=== PATIENT | male | born 1945 | race Caucasian/White ===

== ENCOUNTER → 2019-04-23 11:41 | Outpatient (BNVA) | payer MEDICARE, OTHER, SELFPAY | PROVIDERS: Family Provider Registered Nurse; PCP Registered Nurse; Visit Provider Registered Nurse | DX: J32.9 Chronic sinusitis, unspecified (principal) | CPT/HCPCS: 80053; 85007; 85027 ==

== ENCOUNTER → 2019-05-06 09:55 | Outpatient (BNVA) | payer MEDICARE, OTHER, SELFPAY | PROVIDERS: Family Provider Registered Nurse; PCP Registered Nurse; Referring Provider Registered Nurse; Visit Provider Otolaryngology | DX: J32.9 Chronic sinusitis, unspecified (principal); J34.2 Deviated nasal septum; J34.3 Hypertrophy of nasal turbinates; J30.9 Allergic rhinitis, unspecified; K21.9 Gastro-esophageal reflux disease without esophagitis | CPT/HCPCS: 99203; 99214 ==

== ENCOUNTER 2019-07-17 10:31 | Outpatient (CLI) | payer MEDICARE, OTHER, SELFPAY ==
--- NOTE | 2019-07-17 11:00 | CT_ITS ---
WS: [id number] CT PARANASAL SINUSES HISTORY: chronic sinusitis TECHNIQUE: Contiguous 2.5 mm axial images obtained through the sinuses. Images are reconstructed in s agittal and coronal planes. All CT scans at [facility] use at least one of these dose opt imization techniques: automated exposure control; mA and/or kV adjustment per patient size (includes targeted exams where dose is matched to clinical indication); or iterative reconstruction. DLP: 377.0 mGycm COMPARISON: None available. Frontal sinuses: Normal. Sphenoid sinus: Normal. Ethmoid sinuses: Normal. Maxillary sinus: Incomplete soft tissue septum inferior LEFT maxillary sinus. No air-fluid levels. Ostiomeatal unit: Osteoid units are patent. There is mild narrowing of the RIGHT ostiomeatal unit due to fat from the inferior medial RIGHT orbit extending through 3.8 mm bony dehiscence in the floor of the orbit. Probably from old trauma. There is no entrapment of the extraocular muscles. Very slight leftward deviation of the nasal septum. Lalita bessie and fovea ethmoidalis are negative. CT/CT sinus wo con* [id number] IMPRESSION: 1. No acute or significant sinus disease. 2. Inferior displacement of the RIGHT inferomedial orbital fat through bony de fect causing very slight but not significant narrowing of the RIGHT ostiomeatal unit.
== END 2019-07-17 10:32 | disposition home or self-care (01) ==
LOC: RADWPI 10:36
PROVIDERS: Family Provider Registered Nurse; PCP Registered Nurse; Visit Provider Otolaryngology
DX: J32.9 Chronic sinusitis, unspecified (principal)
CPT/HCPCS: 70486

== ENCOUNTER → 2020-02-18 09:07 | Outpatient (BNVA) | payer MEDICARE, OTHER, SELFPAY | PROVIDERS: Family Provider Registered Nurse; PCP Registered Nurse; Visit Provider Registered Nurse | DX: M54.16 Radiculopathy, lumbar region (principal); G89.29 Other chronic pain; N40.1 Benign prostatic hyperplasia with lower urinary tract symptoms; R53.83 Other fatigue; R35.0 Frequency of micturition; E55.9 Vitamin D deficiency, unspecified | CPT/HCPCS: 80053; 81000; 82306; 84153; 85025 ==

== ENCOUNTER → 2020-03-10 09:11 | Outpatient (BNVA) | payer MEDICARE, OTHER, SELFPAY | PROVIDERS: Family Provider Registered Nurse; PCP Registered Nurse; Referring Provider Registered Nurse; Visit Provider Anesthesiology Pain Medicine | DX: G89.29 Other chronic pain (principal); M54.42 Lumbago with sciatica, left side; M51.36 Other intervertebral disc degeneration, lumbar region; M47.816 Spondylosis without myelopathy or radiculopathy, lumbar region; M54.16 Radiculopathy, lumbar region; M43.06 Spondylolysis, lumbar region; M54.9 Dorsalgia, unspecified | CPT/HCPCS: 99205 ==

== ENCOUNTER 2020-03-18 12:43 | Outpatient (CLI) | payer MEDICARE, SELFPAY ==
--- NOTE | 2020-03-18 13:00 | MR_ITS ---
WS: [id number] MRI LUMBAR SPINE NONCONTRAST HISTORY: M54.16 - Radiculopathy, lumbar region COMPARISON: None available. TECHNIQUE: Sagittal and axial multisequence imaging is submitted. L4 anterolisthesis by 4.9 mm. L2 retrolisthesis by 4 mm. Otherwise alignment is normal. Severe disc space narrowing at L5-S1. Otherwise mild/moderate disc degeneration and narrowing. Hypert rophic osteophytes at all levels. No marrow edema or fracture. Conus terminates normally at L1. T10-11: Shallow LEFT paracentral disc protrusion. L1-L2: Moderate annular disc bulging. Additional osteophytic ridging. Facet joint effusions and ligam entum flavum hypertrophy and facet arthritis. There is a mixed signal intensity mass extending over l ength of 1.4 cm closely associated with the LEFT facet joint encroaching into the central canal and d isplacing the thecal sac and nerve roots to the RIGHT. Transverse and AP diameter of the mass is 0.9 x 0.9 cm. There is significant mass effect upon the LEFT L2 nerve root with extension into the LEFT s ubarticular recess and lateral recess. L2-L3: Diffuse annular disc bulging and osteophytic ridging. Mild bilateral foraminal narrowing and l ateral recess stenosis. L3-L4: Mild annular disc bulging and osteophytic ridging with facet and ligamentum flavum arthritis. Mild bilateral foraminal and subarticular recess narrowing. L4-L5: Diffuse annular disc bulging. Severe ligamentum flavum hypertrophy and facet joint arthritis, greatest on the LEFT. Findings resulting in at least moderate LEFT subarticular recess stenosis and m ild on the RIGHT. L5-S1: Diffuse annular disc bulging and osteophytic ridging. Disc osteophyte extends into the LEFT fo ramen and RIGHT foramen resulting in moderate bilateral foraminal stenosis. Component of the disc pro bably also approaching the LEFT S1 nerve root. Ectatic iliac arteries. Bilateral renal cysts. Small amount of edema in the paraspinal and interspinous ligaments at L2-3 and L3-4. MR/MR lumbar spine wo con* [id number] IMPRESSION: 1. Mass measuring 1.4 x 0.9 x 0.9 cm centered in the LEFT lateral recess and s ubarticular foramen at L1-2. Due to its position and appearance favor this is p robably a hemorrhagic or complex cyst associated with the facet joint. Causing significant mass effect upon the thecal sac and nerve roots and the L2 nerve ro ot on the LEFT. 2. Mild bilateral foraminal stenosis at L2-3 and L3-4 with component of the chavarria barticular lateral recess stenosis. 3. Moderate LEFT subarticular recess and lateral recess stenosis at L4-5 due t o combination of disc disease and facet joint arthritis. 4. Moderate bilateral foraminal stenosis at L5-S1 due to combination of osteop hytes and disc disease. Also there is slight disc and/or osteophyte encroachmen t upon the LEFT S1 nerve root.
== END 2020-03-18 12:44 | disposition home or self-care (01) ==
PROVIDERS: PCP Registered Nurse; Visit Provider Anesthesiology Pain Medicine
DX: M54.16 Radiculopathy, lumbar region (principal); M48.061 Spinal stenosis, lumbar region without neurogenic claudication; M48.07 Spinal stenosis, lumbosacral region; M25.78 Osteophyte, vertebrae
CPT/HCPCS: 72148

== ENCOUNTER → 2020-04-06 10:46 | Outpatient (BNVA) | payer MEDICARE, OTHER, SELFPAY | PROVIDERS: PCP Registered Nurse; Visit Provider Anesthesiology Pain Medicine | DX: G89.29 Other chronic pain (principal); M51.36 Other intervertebral disc degeneration, lumbar region; M54.42 Lumbago with sciatica, left side; M54.16 Radiculopathy, lumbar region; M47.816 Spondylosis without myelopathy or radiculopathy, lumbar region; M43.06 Spondylolysis, lumbar region; M54.9 Dorsalgia, unspecified | CPT/HCPCS: 99214 ==

== ENCOUNTER → 2020-05-15 11:16 | Outpatient (BNVA) | payer MEDICARE, OTHER, SELFPAY | PROVIDERS: PCP Registered Nurse; Visit Provider Registered Nurse | DX: I73.9 Peripheral vascular disease, unspecified (principal); R42 Dizziness and giddiness; E16.2 Hypoglycemia, unspecified; R07.9 Chest pain, unspecified | CPT/HCPCS: 36416; 80053; 82962; 83036; 85025 ==

== ENCOUNTER 2020-06-29 13:21 | Outpatient (CLI) | payer MEDICARE, OTHER, SELFPAY ==
--- NOTE | 2020-06-29 13:30 | USCV_ITS ---
Ricci Torres Age: 74 Gender: M : 1945 Exam Date: 06/29/2020 13:48 Ordering Phys: Aric Barajas M.D ([email or web address]) Technologist: Phillip Quiñonez Exam Location: [facility] [place] Indication: HYPERTENSION BP: / HR: Rhythm: Sinus Technical Quality: Adequate MEASUREMENTS (Male / Female) Normal Values FINDINGS Left Ventricle Normal left ventricular size. LV systolic function is normal with EF of 55-60%. No regional wall motion abnormalities. Grade 1 diastolic dysfunction Right Ventricle The right ventricle is normal in size and function. Right Atrium The right atrium is normal in size. Left Atrium The left atrium is normal in size. Mitral Valve Structurally normal mitral valve without significant stenosis or prolapse. There is trace mitral regurgitation. Aortic Valve Structurally normal aortic valve without significant sclerosis or stenosis. There is trace aortic regurgitation. Tricuspid Valve Structurally normal tricuspid valve without significant stenosis or regurgitation. Insufficient TR jet to calculate RVSP Pulmonic Valve Structurally normal pulmonic valve without significant stenosis. There is no pulmonic regurgitation. Pericardium Normal pericardium without effusion. Aorta Normal ascending aorta dimension. CONCLUSIONS LV systolic function is normal with EF of 55-60% Grade 1 diastolic dysfunction Trace mitral regurgitation. Mild aortic regurgitation No comparison studies are available Aric Barajas MD (Electronically Signed) Final Date: 12 July 2020 13:36 S
== END 2020-06-29 13:22 | disposition home or self-care (01) ==
LOC: RAD 13:28
PROVIDERS: PCP Registered Nurse; Visit Provider Internal Medicine
DX: I10 Essential (primary) hypertension (principal); I35.1 Nonrheumatic aortic (valve) insufficiency; I34.0 Nonrheumatic mitral (valve) insufficiency
CPT/HCPCS: 93306

== ENCOUNTER → 2021-05-10 10:21 | Outpatient (BNVA) | payer MEDICARE, OTHER, SELFPAY | PROVIDERS: PCP Registered Nurse; Visit Provider Registered Nurse | DX: Z20.822 Contact with and (suspected) exposure to COVID-19 (principal); J01.40 Acute pansinusitis, unspecified | CPT/HCPCS: 87635 ==

== ENCOUNTER → 2021-07-06 10:08 | Outpatient (BNVA) | payer MEDICARE, OTHER, SELFPAY | PROVIDERS: PCP Registered Nurse; Visit Provider Registered Nurse | DX: Z13.6 Encounter for screening for cardiovascular disorders (principal); E55.9 Vitamin D deficiency, unspecified; I10 Essential (primary) hypertension; R73.9 Hyperglycemia, unspecified; Z12.5 Encounter for screening for malignant neoplasm of prostate; Z00.00 Encounter for general adult medical examination without abnormal findings; Z71.85 Encounter for immunization safety counseling | CPT/HCPCS: 80053; 80061; 81000; 82306; 83036; 85025; G0103 ==

== ENCOUNTER → 2022-03-03 08:30 | Outpatient (BNVA) | payer MEDICARE, OTHER, SELFPAY | PROVIDERS: PCP Registered Nurse; Visit Provider Nurse Practitioner Family | DX: J30.1 Allergic rhinitis due to pollen (principal); J30.2 Other seasonal allergic rhinitis; N40.1 Benign prostatic hyperplasia with lower urinary tract symptoms; R60.9 Edema, unspecified; R35.0 Frequency of micturition; Z12.83 Encounter for screening for malignant neoplasm of skin; C44.91 Basal cell carcinoma of skin, unspecified; Z12.5 Encounter for screening for malignant neoplasm of prostate | CPT/HCPCS: 80048; 84153 ==

== ENCOUNTER → 2022-07-25 09:48 | Outpatient (BNVA) | payer MEDICARE, OTHER, SELFPAY | PROVIDERS: PCP Registered Nurse; Visit Provider Registered Nurse | DX: Z00.00 Encounter for general adult medical examination without abnormal findings (principal); I10 Essential (primary) hypertension; E55.9 Vitamin D deficiency, unspecified | CPT/HCPCS: 80053; 80061; 82306; 85025 ==

== ENCOUNTER 2022-07-30 19:25 | Emergency (ER) | payer MEDICARE, OTHER, SELFPAY ==
[2022-07-30] VITALS (8 sets, daily range): BP systolic 100–142; BP diastolic 69–87; PULSE 58–84; RESP 14–18; TEMP 36.8; O2SAT 94–97; BMI 25.1
--- NOTE | 2022-07-30 20:10 | USR_ITS ---
PROCEDURE INFORMATION: Exam: US Duplex Right Upper Extremity Veins, Limited Exam date and time: 07/30/2022 9:27 PM Age: 76 years old Clinical indication: Pain; Arm, upper and arm, lower; Right; Prior surgery; Surgery date: 6+ months; Surgery type: Rotator cuff; Additional info: RT arm pain TECHNIQUE: Imaging protocol: Real-time duplex ultrasound of the right Upper Extremity with 2-D villegas scale, color Doppler flow and spectral waveform analysis with image documentation. Limited exam focused on the right upper extremity veins. COMPARISON: No relevant prior studies available. FINDINGS: Right deep veins: Unremarkable. Axillary and brachial veins are patent throughout without thrombus. Normal Doppler waveforms. Normal compressibility and/or augmentation response. Visualized internal jugular and subclavian veins are patent. Right superficial veins: Unremarkable. Visualized cephalic and basilic veins are patent without thrombus. Soft tissues: Unremarkable. US/[place] [id number] IMPRESSION: No evidence of deep vein thrombosis.
[2022-07-30] MEDS: oxyCODONE-APAP 5-325 mg Tablet 2 TAB PO (21:10)
[2022-07-30] MEDS: ondansetron 4 MG Tablet PO ×2 (21:11→23:09)
[2022-07-30] MEDS: oxyCODONE-APAP 5-325 mg Tablet 1 TAB PO (23:09)
[2022-07-30] MEDS: doxycycline 100 mg Tablet PO (23:09)
--- NOTE | 2022-07-31 15:35 | W.ED.EXTPRO ---
HPI - Extremity Problem General: Chief complaint: Extremity Injury, Upper Stated complaint: Sent by DR for possible blood clot Time Seen by Provider: 07/30/22 20:41 Source: patient and family History of Present Illness: 76 year old gentleman who had eye surgery yesterday. He had an IV inserted in the right forearm. He developed elbow and arm pain earlier today with some swelling. He was seen in an outside facility, had an elevated D dimer, and there was concern for upper extremity DVT. He was sent here for an ultrasound to see if this is the case. He continues to experience significant right arm pain. No significant numbness or tingling. He does not note any other injury. He denies fever. He denies chest discomfort or shortness of breath. MD Complaint: extremity pain and extremity swelling Onset (ago): hour(s) Pain Consistency: constant Location: right and upper extremity Quality: aching Radiation: proximal Relieving factors: nothing Exacerbating factors: range of motion Associated symptoms: Deny chest pain, fever(s), myalgias, rash or short of breath Review of Systems Const: Denies: fever(s) or chills ENMT: Denies: throat pain Card: Denies: chest pain or palpitations Resp: Denies: dyspnea, productive cough or non-productive cough GI: Reports: nausea; Denies: abdominal pain or vomiting Musc: Reports: neck pain Skin/Breast: Denies: rash PFSH ED PFSH: Medical History Allergic rhinitis Cataract Chronic radicular lumbar pain Chronic sinusitis Deviated septum Enrolled in chronic care management GERD (gastroesophageal reflux disease) History of nonmelanoma skin cancer Nasal turbinate hypertrophy Retinal detachment TIMES 2 2014 Surgical History H/O arthroscopy of shoulder RIGHT-1986 LEFT 1989 H/O hernia repair 2017 H/O prostate biopsy 2005 History of tonsillectomy Hx of arthroscopic knee surgery TIMES 2-LEFT 1988 AND RIGHT 1987 Family History Grandmother Diabetes Mother Hemophilia Other Anesthesia complication Arthritis Cancer Hypertension Social History Smoking and tobacco status: former smoker Quit status (tobacco): has quit using tobacco Smoking risk assessment/counseling performed?: No Alcohol intake: current Desire information about alcohol rehabilitation?: No Counseling given: No Substance/Drug Use: never Desire information about substance/drug rehabilitation?: No Counseling given: No Household members: spouse Marital status: Current occupational status: retired Current gender identity: Male Physical Exam Const: COMMON NORMALS: no acute distress GENERAL APPEARANCE: cooperative; not ill appearing and not frail appearing HENMT: COMMON NORMALS: normocephalic, atraumatic and Normal external nose present HEAD & SCALP: normocephalic and atraumatic FACE & SINUS: normal facial exam and face symmetric NOSE: Normal external nose present Eye: COMMON NORMALS: Equal, round and reactive pupils present and EOMs intact bilaterally PUPIL: Yes Equal, round and reactive pupils present Neck/C-Spine: GENERAL: Yes trachea midline Chest: CHEST: Yes Symmetrical chest wall rise Resp: COMMON NORMALS: normal respiratory effort, No retractions, No use of accessory muscles and clear to auscultation bilaterally AUSCULTATION: clear to auscultation bilaterally Cardio: COMMON NORMALS: regular rate and regular rhythm RATE: regular rate RHYTHM: regular rhythm GI: COMMON NORMALS: Normal to inspection, nondistended, normoactive bowel sounds present Extremity: COMMON NORMALS: no pedal edema NARRATIVE EXTREMITY EXAM: Examination of the right upper extremity reveals tenderness over the arm, and forearm soft tissues. There is no elbow joint effusion. There does not appear to be a shoulder joint effusion. There is tenderness over the shoulder as well. no deformity. Minimal swelling. Minimal redness over the anterior forearm in the antecubital fossa. sensation intact. radial pulses normal. no signs of compartement syndrome Neuro: BABAK COMA SCALE: document GCS findings Babak coma scale eye opening: Spontaneous [place] coma scale verbal response: Orientated [place] coma scale motor response: Obey commands Babak coma scale total score: 15 SENSORY EXAM: Yes extremities (intact) Psych: COMMON NORMALS: speech normal SPEECH: Yes normal speech Skin: COMMON NORMALS: no rashes or lesions noted GENERAL SKIN EXAM: no rashes or lesions noted Course Vital Signs: Vital signs: Vital Signs Temperature 98.3 F 07/30/22 19:26 Pulse Rate 65 07/30/22 23:07 Respiratory Rate 14 07/30/22 23:07 Blood Pressure 125/82 07/30/22 23:07 Pulse Oximetry 97 07/30/22 23:07 Oxygen Delivery Me thod Room Air 07/30/22 21:04 MDM - Extremity (Nontraumatic) Medical Decision Making Work up completed at the outside facility reveals no significant Leukocytosis, BMP is not remarkable. D dimer was over 1. X-ray of the shoulder revealed significant shoulder arthritis evidently, X-ray of the elbow revealed ulnohumeral joint arthritis as well. Ultrasound for DVT of the right upper extremity is negative. This may be a superficial thrombophlebitis, which we will treat. 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 He'll be placed on pain medication, full dose aspirin, ice, and elevation. Close outpatient follow up with his PCP. You know to return for any new or worsening symptoms such as chest discomfort or shortness of breath. Lab Data Radiology Impressions Venous Duplex 07/30/22 20:10 IMPRESSION: No evidence of deep vein thrombosis. Discharge Plan Discharge Patient Disposition: Home Clinical Impression: Arm pain, right Superficial thrombophlebitis Qualifiers: Superficial thrombophlebitis-Involved body area: upper extremity Laterality: right Qualified Code(s): I80.8 - Phlebitis and thrombophlebitis of other sites Condition: Stable Prescriptions: New doxycycline hyclate 100 mg tablet 100 mg PO BID 7 Days Qty: 14 0RF aspirin 325 mg capsule 325 mg PO DAILY Qty: 30 0RF hydrocodone-acetaminophen 5-325 mg tablet 1 tab PO Q8H PRN (Reason: pain) Qty: 10 0RF ondansetron 4 mg film 4 mg PO DAILY PRN (Reason: nausea and vomiting) Qty: 10 0RF No Action nitroglycerin 0.4 mg tablet, sublingual 0.4 mg SUBLINGUAL Q5M PRN Rhopressa 0.02 % drops 1 drop ophthalmic (eye) ONCE latanoprost 0.005 % drops 1 drop ophthalmic (eye) ONCE timolol 0.5 % drops 1 drop ophthalmic (eye) BID mupirocin 2 % ointment 1 applic topical BID Qty: 15 0RF hydrochlorothiazide 25 mg tablet 25 mg PO QAM Qty: 30 4RF lisinopril 20 mg tablet See Rx Instructions .ROUTE .COMPLEX Qty: 90 0RF Dose Instruction: TAKE 1 TABLET BY MOUTH DAILY Rx Instructions: TAKE 1 TABLET BY MOUTH DAILY amlodipine 10 mg tablet See Rx Instructions .ROUTE .COMPLEX Qty: 90 2RF Dose Instruction: TAKE 1 TABLET BY MOUTH DAILY Rx Instructions: TAKE 1 TABLET BY MOUTH DAILY finasteride 5 mg tablet See Rx Instructions .ROUTE .COMPLEX Qty: 90 2RF Dose Instruction: TAKE 1 TABLET BY MOUTH AT BEDTIME Rx Instructions: TAKE 1 TABLET BY MOUTH AT BEDTIME omeprazole 20 mg capsule,delayed release(DR/EC) See Rx Instructions .ROUTE .COMPLEX Qty: 30 0RF Dose Instruction: TAKE 1 CAPSULE BY MOUTH EVERY DAY Rx Instructions: TAKE 1 CAPSULE BY MOUTH EVERY DAY celecoxib [Celebrex] 100 mg capsule 100 mg PO BID 30 Days Qty: 60 0RF Rx Instructions: cancel meloxicam Discharge Orders: Discharge ED (Routine); Ordered 07/30/22 Ordered By: Popeye Lopez Referrals: Patricia Christopher FNP [Primary Care Provider] - 1-3 days Patient Instructions: Superficial Thrombophlebitis (ED), Opioid Safety, Pain Management Activity Restrictions/Additional Instructions: Take aspirin daily as ordered. Antibiotics as ordered. Other medications are for pain and nausea. Ice frequently for pain. Elevate. Return for worsening pain despite treatment, worsening swelling despite treatment, chest discomfort, shortness of breath, fever, any other concerning symptoms. Coding Level of Care Code ED Electron Beam Photo Mask Technician for Daniel Davis
== END 2022-07-30 23:14 | disposition home or self-care (01) ==
PROVIDERS: Emergency Provider Emergency Medicine; PCP Registered Nurse
DX: I80.8 Phlebitis and thrombophlebitis of other sites (principal); Z87.891 Personal history of nicotine dependence
CPT/HCPCS: 93971; 99284; Q0162

== ENCOUNTER → 2023-06-06 13:48 | Outpatient (BNVA) | payer MEDICARE, SELFPAY | PROVIDERS: PCP Registered Nurse; Visit Provider Registered Nurse | DX: R10.9 Unspecified abdominal pain (principal) | CPT/HCPCS: 81000 ==

== ENCOUNTER → 2023-09-12 16:05 | Outpatient (BNVA) | payer MEDICARE, SELFPAY | PROVIDERS: PCP Registered Nurse; Visit Provider Registered Nurse | DX: I10 Essential (primary) hypertension (principal); E78.5 Hyperlipidemia, unspecified; E55.9 Vitamin D deficiency, unspecified; N40.1 Benign prostatic hyperplasia with lower urinary tract symptoms | CPT/HCPCS: 80053; 80061; 82306; 85025 ==

== ENCOUNTER 2023-11-25 16:06 | Emergency (ER) | payer MEDICARE, SELFPAY ==
[2023-11-25 16:20] VITALS: BP 148/96; PULSE 81; RESP 16; TEMP 36.4; O2SAT 98; BMI 25.8
--- NOTE | 2023-11-25 17:42 | ECG_ITS ---
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 Measurements Intervals [place] Rate: 77 P: 82 VA: 235 QRS: 5 QRSD: 84 T: 30 QT: 388 QTc: 440 Interpretive Statements SINUS RHYTHM WITH FIRST DEGREE AV BLOCK WITH OCCASIONAL SUPRAVENTRICULAR PREMATURE COMPLEXES NONSPECIFIC T-WAVE ABNORMALITY Compared to ECG 04/19/2016 09:28:44 First degree AV block now present Sinus bradycardia no longer present T-wave abnormality still present Electronically Signed On 11-25-2023 21:54:13 CDT by Aric Barajas M.D. [email or web address]
--- NOTE | 2023-11-25 17:42 | XRR_ITS ---
PROCEDURE INFORMATION: Exam: XR Chest Exam date and time: 11/25/2023 6:04 PM Age: 78 years old Clinical indication: Chest pressure; Patient HX: C/O chest pain; Additional info: Cp TECHNIQUE: Imaging protocol: Radiologic exam of the chest. Views: 1 view. COMPARISON: MR shoulder RT wo con* [id number] 11/22/2018 4:44 PM FINDINGS: Lungs: No focal consolidation. Pleural spaces: No evidence of pneumothorax. No evidence of pleural effusion. Heart/Mediastinum: Cardiomediastinal silhouette is within normal limits. Bones/joints: No evidence of acute osseous abnormality. XR/XR chest 1V portable [id number] IMPRESSION: 1. No acute cardiopulmonary abnormality.
[2023-11-25 18:07] VITALS: BP 151/103; PULSE 76; O2SAT 98
[2023-11-25 18:12] LABS: Basophils # 0.1 10^3/uL (0.0-0.1); Basophils % 0.7 %; Eosinophils # 0.2 10^3/uL (0.0-0.8); Eosinophils % 2.9 %; Hematocrit 44.8 % (37-53); Lymphocytes # 2.2 10^3/uL (0.8-4.8); Lymphocytes % 30.8 %; Mean Corpuscular HGB Conc 34.2 g/dL (30-55); Mean Corpuscular Hemoglobin 31.8 pg (27-33); Mean Corpuscular Volume 93.1 fl (82-101); Mean Platelet Volume 9.2 fL (7.4-10.4); Monocytes # 0.9 10^3/uL (0.2-0.9); Monocytes % 12.2 %; Neutrophils # 3.78 10^3/uL (1.8-7.7); Neutrophils % 53.1 %; Nucleated Red Blood Cells % 0 %; Platelet Count 236 10^3/cmm (157-399); Red Blood Count 4.81 10^6/uL (3.85-5.65); Red Cell Distribution Width 12.9 % (12.1-15.1); White Blood Count 7.12 10^3/uL (3.29-11.43)
[2023-11-25 18:35] LABS: Troponin(5th) Baseline < 6 ng/L (0-15)
--- NOTE | 2023-11-25 18:39 | CTR_ITS ---
PROCEDURE INFORMATION: Exam: CT Head Without Contrast Exam date and time: 11/25/2023 6:47 PM Age: 78 years old Clinical indication: Patient HX: C/O dizziness TECHNIQUE: Imaging protocol: Computed tomography of the head without contrast. Radiation optimization: All CT scans at this facility use at least one of these dose optimization techniques: automated exposure control; mA and/or kV adjustment per patient size (includes targeted exams where dose is matched to clinical indication); or iterative reconstruction. COMPARISON: CT sinus wo con* [id number] 07/17/2019 10:41 AM RADIATION DOSE METRICS: Total DLP (mGy-cm): 1097.78 FINDINGS: Brain: No evidence of intra-axial or extra-axial hemorrhage. No mass effect or midline shift. Norton-white differentiation is maintained. Basilar cisterns are patent. Cerebral ventricles: No hydrocephalus. Paranasal sinuses: The visualized paranasal sinuses are well aerated. Mastoid air cells: The visualized mastoids and middle ears are clear. Bones: Calvarium is intact. No evidence of acute fracture. Soft tissues: No gross soft tissue abnormality. CT/CT head wo con* [id number] IMPRESSION: 1. No acute intracranial abnormality.
[2023-11-25 18:41] LABS: Alanine Aminotransferase 15 U/L (0-41); Albumin Level 4.7 g/dL (3.5-5.2); Alkaline Phosphatase 73 U/L (40-130); Anion Gap 17.1 (5-19); Aspartate Amino Transferase 23 U/L (0-40); Blood Urea Nitrogen 15 mg/dL (8-23); Calcium 9.4 mg/dL (8.5-10.5); Carbon Dioxide 24 mmol/L (22-29); Chloride 100 mmol/L (98-107); Creatine Phosphokinase 98 U/L (39-308); Creatinine Clr Calc Pharmacy 79.6446; Globulin 2.4 g/dL (1.3-4.6); Glucose 109 mg/dL (65-115); NT Pro B Type Natriuretic Pept 297 pg/mL (0-450); Osmolality Calculated 285 mOsm/kg (285-295); Potassium 4.1 mmol/L (3.5-5.1); Sodium 137 mmol/L (136-145); Total Bilirubin 0.6 mg/dL (0.15-1.2); Total Protein 7.1 g/dL (6.6-8.7)
[2023-11-25] MEDS: sodium chloride 0.9% 1,000 ML 999 ML IV (18:46)
[2023-11-25 18:48] LABS: Charge for UA Resulting for Rev
[2023-11-25 18:50] LABS: Bilirubin Urine Negative (Negative); Blood Urine Negative (Negative); Glucose Urine UA Negative (Normal); Ketones Urine Negative (Negative); Leukocyte Esterase Urine Negative (Negative); Nitrate Urine Negative (Negative); Protein Urine Negative (Negative); Specific Gravity, Urine 1.002 (1.005-1.030); Urine Appearance Clear (CLEAR); Urine Color Yellow (Yellow); Urobilinogen Urine 0.2 mg/dL (Negative)
[2023-11-25 18:55] LABS: Bacteria Urine None Seen /hpf; Hyaline Casts Urine 0-4 /lpf; RBC Urine 0-2 /hpf (0-2); Squamous Epithelial Cell Urine 0-5 /hpf (0-5); WBC Urine 0-5 /hpf (0-5)
--- NOTE | 2023-11-25 19:25 | ED_ITS ---
HPI - Chest Pain 2 General: Chief Complaint: Chest Pain Stated Complaint: Chest Pain, weakness, dizzy Time Seen by Provider: 11/25/23 17:58 History of Present Illness: 78-year-old male with no prior history o f coronary disease. He does have some mitral valve disease he says. He been working outside earlier in the day, when he began to get generally weak, shaky, dizzy, and felt chest tightness. He went inside drink some water and Gatorade with improvement. He went back outside and got symptoms again. He was also diaphoretic. His chest tightness was a bit worse. He does not admit to chest pain. He feels improved now at rest. No fever history, no cough, no vomiting. Related Data Home Medications Medication Instructions Recorded Confirmed latanoprost 0.005 % eye drops 1 drop ophthalmic (eye) ONCE 03/25/19 09/12/23 netarsudil 0.02 % eye drops 1 drop ophthalmic (eye) ONCE 03/25/19 09/12/23 (Rhopressa) timolol 0.5 % eye drops 1 drop ophthalmic (eye) BID 03/25/19 09/12/23 Previous Rx's Medication Instructions Recorded potassium chloride 10 mEq 10 meq PO DAILY 90 days #90 tabs 10/11/22 tablet,extended release (Klor-Con) albuterol sulfate 90 mcg/actuation 1 inh inhalation QID PRN shortness 12/21/22 aerosol inhaler of breath or wheezing 30 days #8.5 grams fluticasone furoate 100 1 inh inhalation DAILY #1 ea 01/17/23 mcg-vilanterol 25 mcg/dose inhalation powder (Breo Ellipta) amlodipine 10 mg tablet See Rx Instructions .Route 09/12/23 .COMPLEX #90 tabs finasteride 5 mg tablet See Rx Instructions .Route 09/12/23 .COMPLEX #90 tabs omeprazole 20 mg capsule,delayed See Rx Instructions .Route 09/12/23 release .COMPLEX #90 caps furosemide 20 mg tablet (Lasix) 20 mg PO DAILY 30 days #30 tabs 09/25/23 celecoxib 100 mg capsule See Rx Instructions .Route 10/16/23 .COMPLEX #180 caps Allergies Allergy/AdvReac Type Severity Reaction Status Date / Time No Known Allergies Allergy Verified 09/12/23 13:27 FOR[facility]LY [facility] ED 2 PFSH: Medical History History of nonmelanoma skin cancer Enrolled in chronic care management Retinal detachment TIMES 2 2014 Cataract Chronic radicular lumbar pain GERD (gastroesophageal reflux disease) Allergic rhinitis Chronic sinusitis Nasal turbinate hypertrophy Deviated septum Surgical History H/O hernia repair 2016 H/O arthroscopy of shoulder RIGHT-1987 LEFT 1989 History of tonsillectomy Hx of arthroscopic knee surgery TIMES 2-LEFT 1988 AND RIGHT 1987 H/O prostate biopsy 2004 Family History Grandmother Diabetes Mother Hemophilia Other Anesthesia complication Arthritis Cancer Hypertension Social History Smoking and tobacco/nicotine status: former use of tobacco/nicotine Quit status (tobacco/nicotine): has quit using Alcohol intake: current Substance/Drug Use: never Household members: spouse Marital status: Current occupational status: retired Current gender identity: Male Physical Exam 2 Const: COMMON NORMALS: no acute distress and alert GENERAL APPEARANCE: c ooperative; not ill appearing and not frail appearing HENMT: COMMON NORMALS: normocephalic, atraumatic and Normal external nose present HEAD & SCALP: normocephalic and atraumatic FACE & SINUS: normal facial exam and face symmetric NOSE: Normal external nose present Eye: COMMON NORMALS: Equal, round and reactive pupils present and EOMs intact bilaterally PUPIL: Yes Equal, round and reactive pupils present Neck/C-Spine: GENERAL: Yes trachea midline Chest: CHEST: Yes Symmetrical chest wall rise Resp: COMMON NORMALS: normal respiratory effort, No retractions, No use of accessory muscles and clear to auscultation bilaterally AUSCULTATION: clear to auscultation bilaterally Cardio: COMMON NORMALS: regular rate and regular rhythm RATE: regular rate RHYTHM: regular rhythm GI: COMMON NORMALS: Normal to inspection, nondistended, normoactive bowel sounds present Extremity: COMMON NORMALS: no pedal edema Neuro: BABAK COMA SCALE: document GCS findings [place] coma scale eye opening: Spontaneous Babak coma scale verbal response: Orientated Babak coma scale motor response: Obey commands [place] coma scale total score: 15 S ENSORIUM/ORIENTATION: Yes alert CRANIAL NERVES: Yes CN normal except as noted COORDINATION/BALANCE: [id number]-[id number] test normal and [id number]-gs-gtqy test normal SPEECH: speech normal SENSORY EXAM: Yes extremities (intact) MOTOR EXAM: Pronator motor function not present, no tremor noted and Normal motor muscle tone present throughout COORDINATION: [id number] test normal and [id number] test normal Psych: COMMON NORMALS: speech normal SPEECH: Yes normal speech Skin: COMMON NORMALS: no rashes or lesions noted GENERAL SKIN EXAM: no rashes or lesions noted Course 2 Vital Signs: Vital signs: Vital Signs Temperature 97.6 F 11/25/23 21:10 Pulse Rate 65 11/25/23 21:10 Respiratory Rate 14 11/25/23 21:10 Blood Pressure 135/95 11/25/23 21:10 Pulse Oximetry 95 11/25/23 21:10 Oxygen Delivery Me thod Room Air 11/25/23 21:08 MDM - Chest Pain Medical Decision Making 78-year-old male gentleman. He presents with improved chest tightness, diaphoresis, generalized weakness and dizziness. Head CT is negative. Chest x- ray is negative. EKG reveals no acute ST wave changes. His CBC and BMP are normal. Liver enzymes are normal. His troponin is less than 6. Urinalysis is negative. He received a liter of fluid here. He feels well. He will be allowed discharge home, to return for any return of his symptoms. Lab Data 11/25/23 18:06 11/25/23 18:06 Radiology Impressions Chest X-Ray 11/25/23 17:42 IMPRESSION: 1. No acute cardiopulmonary abnormality. Head CT 11/25/23 18:39 IMPRESSION: 1. No acute intracranial abnormality. Laboratory Results WBC 7.12 10^3/uL (3.29-11.43) 11/25/23 18:06 RBC 4.81 10^6/uL (3.85-5.65) 11/25/23 18:06 Hgb 15.30 g/dL (11.27-16.99) 11/25/23 18:06 Hct 44.8 % (37-53) 11/25/23 18:06 MCV 93.1 fl (82-101) 11/25/23 18:06 MCH 31.8 pg (27-33) 11/25/23 18:06 MCHC 34.2 g/dL (30-55) 11/25/23 18:06 RDW 12.9 % (12.1-15.1) 11/25/23 18:06 Plt Count 236 10^3/cmm (157-399) 11/25/23 18:06 MPV 9.2 fL (7.4-10.4) 11/25/23 18:06 Neut % (Auto) 53.1 % 11/25/23 18:06 Lymph % (Auto) 30.8 % 11/25/23 18:06 [place] % (Auto) 12.2 % 11/25/23 18:06 Eos % (Auto) 2.9 % 11/25/23 18:06 Baso % (Auto) 0.7 % 11/25/23 18:06 Neut # (Auto) 3.78 10^3/uL (1.8-7.7) 11/25/23 18:06 Lymph # (Auto) 2.2 10^3/uL (0.8-4.8) 11/25/23 18:06 [place] # (Auto) 0.9 10^3/uL (0.2-0.9) 11/25/23 18:06 Eos # (Auto) 0.2 10^3/uL (0.0-0.8) 11/25/23 18:06 Baso # (Auto) 0.1 10^3/uL (0.0-0.1) 11/25/23 18:06 Nucleated RBC % (auto) 0 % 11/25/23 18:06 Nucleated RBCs # 0.0 /100WBC 11/25/23 18:06 Sodium 137 mmol/L (136-145) 11/25/23 18:06 Potassium 4.1 mmol/L (3.5-5.1) 11/25/23 18:06 Chloride 100 mmol/L (98-107) 11/25/23 18:06 Carbon Dioxide 24 mmol/L (22-29) 11/25/23 18:06 Anion Gap 17.1 (5-19) 11/25/23 18:06 BUN 15 mg/dL (8-23) 11/25/23 18:06 Creatinine 0.8 mg/dL (0.7-1.2) 11/25/23 18:06 GFR Calculation Not Reportable 11/25/23 18:06 Glucose 109 mg/dL (65-115) 11/25/23 18:06 Calculated Osmolality 285 mOsm/kg (285-295) 11/25/23 18:06 Calcium 9.4 mg/dL (8.5-10.5) 11/25/23 18:06 Total Bilirubin 0.6 mg/dL (0.15-1.2) 11/25/23 18:06 AST 23 U/L (0-40) 11/25/23 18:06 ALT 15 U/L (0-41) 11/25/23 18:06 Alkaline Phosphatase 73 U/L (40-130) 11/25/23 18:06 Creatine Kinase 98 U/L (39-308) 11/25/23 18:06 Troponin T Baseline < 6 ng/L (0-15) 11/25/23 18:06 Troponin T 120 Minute 6.98 ng/L (0-15) 11/25/23 20:00 Delta Troponin T 0.99964 ABS# (0-10) 11/25/23 20:00 NT-Pro-B Natriuret Pep 297 pg/mL (0-450) 11/25/23 18:06 Total Protein 7.1 g/dL (6.6-8.7) 11/25/23 18:06 Albumin 4.7 g/dL (3.5-5.2) 11/25/23 18:06 Globulin 2.4 g/dL (1.3-4.6) 11/25/23 18:06 Urine Color Yellow (Yellow) 11/25/23 18:44 Urine Appearance Clear (CLEAR) 11/25/23 18:44 Urine pH 8.0 (5-7) A 11/25/23 18:44 Ur Specific [place] 1.002 (1.005-1.030) L 11/25/23 18:44 Urine Protein Negative (Negative) 11/25/23 18:44 Urine Glucose (UA) Negative (Normal) 11/25/23 18:44 Urine Ketones Negative (Negative) 11/25/23 18:44 Urine Blood Negative (Negative) 11/25/23 18:44 Urine Nitrate Negative (Negative) 11/25/23 18:44 Urine Bilirubin Negative (Negative) 11/25/23 18:44 Urine Urobilinogen 0.2 mg/dL (Negative) 11/25/23 18:44 Ur Leukocyte Esterase Negative (Negative) 11/25/23 18:44 Urine RBC 0-2 /hpf (0-2) 11/25/23 18:44 Urine WBC 0-5 /hpf (0-5) 11/25/23 18:44 Ur Squamous Epith Cells 0-5 /hpf (0-5) 11/25/23 18:44 Amorphous Sediment Not Reportable 11/25/23 18:44 Urine Bacteria None seen /hpf (NONE) 11/25/23 18:44 Hyaline Casts 0-4 /lpf H 11/25/23 18:44 All radiology interpretation(s) finalized by discharge Discharge Plan Discharge Patient Disposition: Home Clinical Impression: Dizziness, Chest tightness Condition: Stable Prescriptions: No Action Rhopressa 0.02 % drops 1 drop ophthalmic (eye) ONCE latanoprost 0.005 % drops 1 drop ophthalmic (eye) ONCE timolol 0.5 % drops 1 drop ophthalmic (eye) BID albuterol sulfate 90 mcg/actuation HFA aerosol inhaler 1 inh inhalation QID PRN (Reason: shortness of breath or wheezing) 30 Days Qty: 8.5 0RF fluticasone furoate-vilanterol [Breo Ellipta] 100-25 mcg/dose blister with device 1 inh inhalation DAILY Qty: 1 0RF amlodipine 10 mg tablet See Rx Instructions .ROUTE .COMPLEX Qty: 90 4RF Dose Instruction: TAKE 1 TABLET BY MOUTH DAILY Rx Instructions: TAKE 1 TABLET BY MOUTH DAILY finasteride 5 mg tablet See Rx Instructions .ROUTE .COMPLEX Qty: 90 4RF Dose Instruction: TAKE 1 TABLET BY MOUTH AT BEDTIME Rx Instructions: TAKE 1 TABLET BY MOUTH AT BEDTIME omeprazole 20 mg capsule,delayed release(DR/EC) See Rx Instructions .ROUTE .COMPLEX Qty: 90 4RF Dose Instruction: TAKE 1 CAPSULE BY MOUTH EVERY DAY Rx Instructions: TAKE 1 CAPSULE BY MOUTH EVERY DAY potassium chloride [Klor-Con 10] 10 mEq tablet extended release 10 meq PO DAILY 90 Days Qty: 90 0RF furosemide [Lasix] 20 mg tablet 20 mg PO DAILY 30 Days Qty: 30 0RF celecoxib 100 mg capsule See Rx Instructions .ROUTE .COMPLEX Qty: 180 0RF Dose Instruction: TAKE 1 CAPSULE TWICE DAILY Rx Instructions: TAKE 1 CAPSULE TWICE DAILY Discharge Orders: Discharge ED (Routine); Ordered 11/25/23 Ordered By: Popeye Lopez Referrals: Patricia Christopher FNP [Primary Care Provider] - 1-3 days Patient Instructions: Chest Pain (ED), Dizziness (ED), Opioid Safety, Pain Management Activity Restrictions/Additional Instructions: Stay in a cool environment for the next 24 hours. Hydrate. Return immediately for return of chest discomfort, any shortness of breath, dizziness, other concerning symptoms. See your doctor this coming week. Coding Level of Care Code ED Library Clerk for Daniel Davis
[2023-11-25 19:30] VITALS: BP 142/101
--- NOTE | 2023-11-25 19:42 | ECG_ITS ---
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 Measurements Intervals [place] Rate: 60 P: 48 NE: 223 QRS: -11 QRSD: 92 T: -5 QT: 419 QTc: 419 Interpretive Statements SINUS RHYTHM WITH MARKED SINUS ARRHYTHMIA WITH FIRST DEGREE AV BLOCK NONSPECIFIC T-WAVE ABNORMALITY Compared to ECG 11/25/2023 16:13:42 No significant changes Electronically Signed On 11-25-2023 21:54:37 CDT by Aric Barajas M.D. [id number]
[2023-11-25 20:12] VITALS: BP 146/97; PULSE 72; RESP 12; O2SAT 96
[2023-11-25 20:23] LABS: Troponin 5 2HR 6.98 ng/L (0-15); Troponin 5 2HR Delta 0.98001 ABS# (0-10)
[2023-11-25 21:08] VITALS: BP 135/95; PULSE 65; RESP 14; O2SAT 95
[2023-11-25 21:10] VITALS: BP 135/95; PULSE 65; RESP 14; TEMP 36.4; O2SAT 95
== END 2023-11-25 21:11 | disposition home or self-care (01) ==
PROVIDERS: Emergency Provider Emergency Medicine; PCP Registered Nurse
DX: R07.89 Other chest pain (principal); R42 Dizziness and giddiness; Z87.891 Personal history of nicotine dependence
CPT/HCPCS: 36415; 70450; 71045; 80053; 81003; 81015; 82550; 83880; 84484; 85025; 93005; 99285; J7030

== ENCOUNTER 2024-02-07 06:04 | Outpatient (CLI) | payer MEDICARE, SELFPAY ==
--- NOTE | 2024-02-07 06:30 | US_ITS ---
WS: [id number] TESTICULAR ULTRASOUND HISTORY: N45.1 - Epididymitis COMPARISON: None available. TECHNIQUE: Real-time and color Doppler imaging or utilized to perform a testicular ultrasound. Right testicle: 3.9 cm x 2.6 cm x 2.4 cm. Normal size and echogenicity. No mass or torsion. Normal color Doppler is present throughout. Systolic and diastolic velocities are both present. No significant hydrocele. Right epididymis: RIGHT epididymis is slightly enlarged and heterogeneous but there is no increased v ascularity. Left testicle: 3.6 cm x 2.8 cm x 1.9 cm. Normal size and echogenicity. No mass or torsion. Normal color Doppler is present throughout. Systolic and diastolic velocities are both present. Small hydrocele. Left epididymis: Heterogeneous slightly prominent epididymis. No increased vascularity. US/US scrotum [id number] IMPRESSION: 1. No testicular mass or torsion. 2. Mildly heterogeneous epididymis. No epididymitis.
== END 2024-02-07 06:05 | disposition home or self-care (01) ==
PROVIDERS: PCP Registered Nurse; Visit Provider Nurse Practitioner Family
DX: N45.1 Epididymitis (principal)
CPT/HCPCS: 76870

== ENCOUNTER → 2024-08-15 10:11 | Outpatient (BNVA) | payer MEDICARE, SELFPAY | PROVIDERS: PCP Registered Nurse; Visit Provider Registered Nurse | DX: J32.9 Chronic sinusitis, unspecified (principal) | CPT/HCPCS: 80048; 85025 ==

== ENCOUNTER → 2024-09-12 12:11 | Outpatient (BNVA) | payer MEDICARE, SELFPAY | PROVIDERS: PCP Registered Nurse; Visit Provider Registered Nurse | DX: Z12.5 Encounter for screening for malignant neoplasm of prostate (principal); Z13.1 Encounter for screening for diabetes mellitus | CPT/HCPCS: 83036; G0103 ==